=== PATIENT | female | born 1950 | race Caucasian/White ===

== ENCOUNTER 2016-08-09 10:06 | Emergency (ER) | payer BC, MEDICAID ==
[~2016-08-09] VITALS: Ht 172.7 cm; Wt 63.5 kg
--- NOTE | 2016-08-09 10:08 | NUR ---
Stable condition, alert and oriented x4. States has had productive cough and fever at night for about two weeks, temperature at night up to 100F. States received Z pack at beginning of illness and completed, symptoms not relieved. Non productive cough noted at this time. No other complaints/injuries per patient or noted.
[2016-08-09 10:19] VITALS: BP 115/74; PULSE 98; RESP 16; TEMP 97.5; O2SAT 95
[2016-08-09] MEDS ORDERED: DEXAMETHASONE SOD PHOSPHATE 10 MG/ML VIAL IM ONE (10:30)
--- NOTE | 2016-08-09 10:30 | NUR ---
Dr Esqueda at bedside
[2016-08-09] MEDS ORDERED: IPRATROPIUM/ALBUTEROL SULFATE 3 ML AMPUL.NEB INH ONE (11:15)
[2016-08-09] MEDS ORDERED: IPRATROPIUM/ALBUTEROL SULFATE 3 ML AMPUL.NEB ONE (11:18)
[2016-08-09 11:20] VITALS: BP 112/76; PULSE 88; RESP 16; TEMP 97.6; O2SAT 97
--- NOTE | 2016-08-09 11:20 | NUR ---
Patient given written and verbal discharge instructions and verbalizes understanding. ER MD discussed with patient the results and treatment provided.Patient in stable condition. ID arm band removed. Rx of Codeine Phosphate/Guaifenesin, Doxycycline and Ibuprofen given. Patient educated on pain management and to follow up with PMD in 4-5 days. Opportunity for questions provided and answered.
== END 2016-08-09 11:20 | disposition home or self-care (01) ==
LOC: SED 10:06
DX: J20.9 Acute bronchitis, unspecified (principal)
CPT/HCPCS: 96372; 99283; J1100

== ENCOUNTER 2016-08-12 11:05 | Emergency (ER) | payer MEDICAID ==
[~2016-08-12] VITALS: Ht 172.7 cm; Wt 62.6 kg
[2016-08-12 11:05] VITALS: BP_SYST 139
[2016-08-12] MEDS ORDERED: AMOXICILLIN/CLAVULANATE POTASSIUM 500 MG TABLET PO ONE (11:45)
[2016-08-12] MEDS ORDERED: IPRATROPIUM/ALBUTEROL SULFATE 3 ML AMPUL.NEB INH ONE (11:45)
[2016-08-12 13:12] VITALS: BP_SYST 130
== END 2016-08-12 13:12 | disposition home or self-care (01) ==
LOC: SED 11:05
DX: J20.9 Acute bronchitis, unspecified (principal); R03.0 Elevated blood-pressure reading, without diagnosis of hypertension
CPT/HCPCS: 36415; 71010; 86710; 94640; 99285

== ENCOUNTER 2021-03-30 11:48 | Emergency (ER) | payer OTHER, SELFPAY ==
[~2021-03-30] VITALS: Ht 172.7 cm; Wt 65.8 kg
[2021-03-30 12:30] VITALS: BP_SYST 146
[2021-03-30 15:45] LABS: BASOPHILS # (AUTO) 0.1 K/uL (0.0-0.2); BASOPHILS % (AUTO) 1.9 % (0.0-2.0); EOSINOPHILS % (AUTO) 0.3 % (0.0-4.0); HEMATOCRIT 41.1 % (36-48); HEMOGLOBIN 14.3 g/dL (12.0-16.0); LYMPHOCYTES # (AUTO) 0.9 K/uL (1.0-5.5); LYMPHOCYTES % (AUTO) 27.3 % (20.5-51.5); MEAN CORPUSCULAR HEMOGLOBIN 30 pg (27-31); MEAN CORPUSCULAR HGB CONC 35 % (32-36); MEAN CORPUSCULAR VOLUME 88 fL (79.0-98.0); MONOCYTES # (AUTO) 0.3 K/uL (0.0-1.0); MONOCYTES % (AUTO) 8.6 % (1.7-9.3); NEUTROPHILS % (AUTO) 61.9 % (40.0-70.0); PLATELET COUNT (AUTO) 167 K/uL (130-430); RED BLOOD CELL COUNT(AUTO) 4.69 MIL/uL (4.2-6.2); RED CELL DISTRIBUTION WIDTH 13.8 % (9.0-15.0); WHITE BLOOD COUNT (AUTO) 3.3 K/uL (4.8-10.8)
--- NOTE | 2021-03-30 15:55 | NUR ---
Pt to bed 8 for evaluation. Pt attached to gambling monitor.
--- NOTE | 2021-03-30 15:56 | NUR ---
Pt was seen by Dr. Fountain in the tent at 1325.
--- NOTE | 2021-03-30 15:58 | NUR ---
Pt AAO and ambulatory reporting that she took a home covid test and it was positive and that she has been coughing x 1 week. Pt reports pain that is mild and congestion. Pt is unvaccinated and recently returned from [place] which is currently inundated with covid cases. Pt had CXR, EKG, and blood drawn in tent prior.
--- NOTE | 2021-03-30 16:00 | NUR ---
# 20 gauge angiocath placed to left AC. Use of asceptic technique. Opsite placed over site. Blood return noted. Flushed with 10 cc of normal saline. No evidence of infiltration noted. Patient tolerated well.
[2021-03-30 16:13] LABS: ANION GAP 11 (5-15); CALCIUM 7.6 mg/dL (8.4-11.0); CHLORIDE 96 mmol/L (98-107); CREATININE 0.82 mg/dL (0.55-1.30); GFR AFRICAN AMERICAN 89 mL/min (>90); GLUCOSE 92 mg/dL (70-99); POTASSIUM 4.3 mmol/L (3.5-5.1); SODIUM SERUM 133 mmol/L (136-145); UREA NITROGEN, BLOOD 18 mg/dL (8-21)
[2021-03-30 16:14] LABS: ALANINE AMINOTRANSFERASE 34 U/L (12-78); ALBUMIN 3.8 g/dL (3.4-4.8); ASPARTATE AMINOTRANSFERASE 28 U/L (10-37); TOTAL BILIRUBIN 0.2 mg/dL (0.0-1.0)
[2021-03-30] MEDS: NACL 0.9% 1,000 ML IV ONE (16:14)
[2021-03-30] MEDS: KETOROLAC TROMETHAMINE 15 MG VIAL IVP ONE (16:14)
[2021-03-30] MEDS: ONDANSETRON HCL 4 MG/2 ML VIAL IVP ONE (16:15)
--- NOTE | 2021-03-30 17:00 | NUR ---
IV [id number] was discussed and pt verbally consented to IV administration. Side effects were discussed and RN stayed with pt for first several minutes of infusion to ensure pt is tolerating medication well. Pt did not display any adverse effect since initiation of this IV infusion.
[2021-03-30] MEDS: CASIRIVIMAB 600 MG, IMDEVIMAB 600 MG in NS 250 ML IV ONE (17:05)
--- NOTE | 2021-03-30 17:45 | NUR ---
Pt tolerating infusion well. V/S continue to be stable.
--- NOTE | 2021-03-30 18:50 | NUR ---
Pt IV was pulled out. IV restarted in right AC 20g iv HL. IV infusion continued. V/S continue to be stable.
--- NOTE | 2021-03-30 19:00 | NUR ---
Report given to PURA Phelan who will assume care.
--- NOTE | 2021-03-30 19:50 | NUR ---
Patient resting quietly. No acute distress noted. No symptoms of allergies reaction.
[2021-03-30 20:49] VITALS: BP_SYST 140
--- NOTE | 2021-03-30 20:49 | NUR ---
Patient given written and verbal discharge instructions and verbalizes understanding. ER MD discussed with patient the results and treatment provided. Patient in stable condition. ID arm band removed. IV catheter removed intact and dressing applied, no active bleeding. No Rx given. Patient educated on pain management and to follow up with PMD. Pain Scale 0/10. Opportunity for questions provided and answered.
== END 2021-03-30 20:49 | disposition home or self-care (01) ==
LOC: SED 11:48
DX: U07.1 COVID-19 (principal)
CPT/HCPCS: 36415; 71045; 80053; 84484; 85025; 87426; 93005; 96361; 96374; 96375; 99285; J1885; J2405; J7030; J7050; M0243; Q0243